=== PATIENT | female | born 1990 | race Two or more races ===

== ENCOUNTER 2022-09-19 19:21 | Emergency (ER) | payer OTHER ==
[~2022-09-19] VITALS: Ht 160 cm; Wt 71.6 kg
[2022-09-20] MEDS ORDERED: IBUPROFEN 600MG TAB PO STA (00:13)
[2022-09-20 00:46] LABS: ALBUMIN 3.3 G/DL (3.2-5.2); ALKALINE PHOSPHATASE 70 U/L (46-116); ALT/SGPT < 9 U/L (7.0-40); AST/SGOT < 8 U/L (<34); BILIRUBIN,DIRECT < 0.1 MG/DL (<0.4); BILIRUBIN,TOTAL 0.3 MG/DL (0.3-1.2); BLOOD UREA NITROGEN 14 MG/DL (9-23); CALCIUM LEVEL 9.3 MG/DL (8.5-10.1); CARBON DIOXIDE LEVEL 28 MMOL/L (20-31); CHLORIDE LEVEL 105 MMOL/L (98-107); CREATININE FOR GFR 1.13 MG/DL (0.55-1.30); GLOMERULAR FILTRATION RATE > 60.0 (>60); GLUCOSE, FASTING 119 MG/DL (60-100); POTASSIUM SERUM 3.2 MMOL/L (3.5-5.1); SODIUM LEVEL 138 MMOL/L (136-145); TOTAL PROTEIN 6.4 G/DL (5.7-8.2)
[2022-09-20 00:51] LABS: BASO # 0.1 10^3/uL (0.0-0.2); BASO % 0.6 % (0.0-1.0); EOS # 0.1 10^3/uL (0.0-0.5); EOS % 1.3 % (0.0-3.0); HEMATOCRIT 38.9 % (36.0-47.0); HEMOGLOBIN 12.5 g/dl (12.0-15.5); LYMPH # 3.6 10^3/uL (1.5-5.0); LYMPH % 39.5 % (24.0-44.0); MEAN CORPUSCULAR HGB CONC 32.1 g/dl (32.0-36.5); MONO # 0.6 10^3/uL (0.0-0.8); MONO % 6.5 % (2.0-8.0); NEUTROPHILS # 4.6 10^3/uL (1.5-8.5); NEUTROPHILS % 50.6 % (36.0-66.0); PLATELET COUNT, AUTOMATED 307 10^3/uL (150-450); RED BLOOD COUNT 4.47 10^6/uL (4.00-5.40); WHITE BLOOD COUNT 9.1 10^3/uL (4.0-10.0)
[2022-09-20 01:13] LABS: HCG, SERUM QUALITATIVE NEGATIVE (NEGATIVE)
[2022-09-20] MEDS ORDERED: ONDANSETRON 4MG 2ML VIAL IV ONE (01:20)
[2022-09-20] MEDS ORDERED: NS 1,000 ML IV ONE (01:20)
[2022-09-20] MEDS ORDERED: KETOROLAC 30 MG/ML 1ML VIAL IV ONE (01:20)
[2022-09-20] MEDS ORDERED: BENZONATATE 100MG CAPSULE PO ONE (01:20)
[2022-09-20] MEDS ORDERED: ACETAMINOPHEN 1000MG 100ML IV BAG IV ONE (01:30)
[2022-09-20 01:35] LABS: RSV AMPLIFICATION NEGATIVE (NEGATIVE)
[2022-09-20] MEDS: IPRATROPIUM 0.5MG/ALBUTEROL 2.5MG INH SOL UD 3ML (DUONEB) NEB PRN ×2 (01:47→02:02)
[2022-09-20] MEDS ORDERED: ONDA4TAB6 PO (02:40)
[2022-09-20] MEDS ORDERED: ALBU2.5V10 NEB (02:40)
[2022-09-20] MEDS ORDERED: NEBU1EAC78 MC (02:40)
[2022-09-20] MEDS ORDERED: NAPR-837 PO (02:40)
[2022-09-20] MEDS ORDERED: FLON1SPR NARES (02:40)
[2022-09-20] MEDS ORDERED: PSEU120T19 PO (02:40)
[2022-09-20] MEDS ORDERED: BENZ200C70 PO (02:40)
[2022-09-20 02:50] VITALS: BP 101/55; TEMP 97.6; O2SAT 99
== END 2022-09-20 02:53 | disposition home or self-care (01) ==
LOC: M ED 19:21
DX: R11.2 Nausea with vomiting, unspecified (principal); R09.81 Nasal congestion; R05.9 Cough, unspecified; R09.1 Pleurisy; J45.909 Unspecified asthma, uncomplicated; Z88.7 Allergy status to serum and vaccine; Z79.52 Long term (current) use of systemic steroids; Z79.83 Long term (current) use of bisphosphonates; Z79.899 Other long term (current) drug therapy
CPT/HCPCS: 71046; 80048; 80076; 84703; 85025; 87631; 94640; 96361; 96374; 96375; 99284; J0131; J2405